=== PATIENT | female | born 1995 | race Caucasian/White ===

== ENCOUNTER → 2021-07-20 | Outpatient (CLI) | payer BC ==
--- NOTE | 2021-07-20 13:50 | RAD ---
EXAMINATION: XR FOOT_LEFT 3 VIEWS CLINICAL HISTORY: STEPPED ON GLASS/HAS A SPLINTER LATERAL LEFT FOOT, PLANTAR TECHNIQUE: XR FOOT_LEFT 3 VIEWS COMPARISON: None FINDINGS/ IMPRESSION: 2 small thin linear densities measuring up to 3 mm projected over the plantar subcutaneous soft tissu es and the hindfoot on the lateral, suspicious for retained foreign bodies given reported history. Co rrelate clinically. No focal soft tissue swelling. Joint spaces and alignment maintained. No acute fracture. Electronically signed by: Eldon Chu DO (07/20/2021 1:47 PM) [id number]
== END ==
LOC: PMG 13:11
PROVIDERS: ATTEND Nurse Practitioner Family
DX: S90.852A Superficial foreign body, left foot, initial encounter (principal); X58.XXXA Exposure to other specified factors, initial encounter; Y93.89 Activity, other specified; Y92.89 Other specified places as the place of occurrence of the external cause; Y99.8 Other external cause status
CPT/HCPCS: 73630